=== PATIENT | male | born 1965 | race Native Hawaiian/Other Pacific Islander ===

== ENCOUNTER 2018-06-30 17:53 | Outpatient (CLI) | payer OTHER | END 2018-06-30 20:37 | disposition home or self-care (01) | LOC: RAD 17:53 | DX: R05 Cough (principal) ==

== ENCOUNTER 2019-04-30 12:26 | Outpatient (CLI) | payer OTHER | END 2019-04-30 20:18 | disposition home or self-care (01) | LOC: NM 12:26 | DX: R10.11 Right upper quadrant pain (principal) | CPT/HCPCS: A9537 ==